=== PATIENT | female | born 1950 | race Two or more races ===

== ENCOUNTER 2019-11-22 18:28 | Inpatient (IN) | payer OTHER ==
[~2019-11-22] VITALS: Ht 160 cm; Wt 83.9 kg
[2019-11-22] MEDS: POTASSIUM CHL 20MEQ/100ML 100 ML IV SCH ×2 (03:30→22:39)
[2019-11-22 19:30] LABS: Basophils # (auto) 0.1 10 ^3/uL (0-0.2); Basophils % (auto) 1.2 % (0.0-2.0); Eosinophils # (auto) 0.1 10 ^3/uL (0-0.8); Eosinophils % (auto) 1.2 % (0.0-7.0); Hematocrit 40.8 % (36.0-46.0); Lymphocytes % (auto) 20.1 % (10.0-50.0); Mean Corpuscular Hemoglobin 29.1 pg (28.0-32.0); Mean Corpuscular Hgb Conc. 34.4 g/dL (32.0-36.0); Mean Corpuscular Volume 84.5 fL (80.0-100.0); Monocytes # (auto) 0.9 10 ^3/uL (0-1.3); Monocytes % (auto) 8.8 % (0.0-12.0); Neutrophils % (auto) 68.7 % (37.0-80.0); Nucleated Red Blood Cells % 0.1 %; Platelet Count (auto) 226 10^3/uL (140-450); Red Blood Cells 4.83 10^6/uL (4.0-5.20); Red Cell Distribution Width 15.1 % (11.8-14.3); White Blood Cell 10.2 10^3/uL (4.4-10.8)
[2019-11-22 19:54] LABS: Albumin 3.7 g/dL (3.4-5.0); BUN/Creatinine Ratio 31.4; Calcium 9.6 mg/dL (8.5-10.1)
[2019-11-22 19:57] LABS: Bilirubin, Total 0.6 mg/dL (0.2-1.0); Total Protein 7.6 g/dL (6.4-8.2)
[2019-11-22 20:04] LABS: Potassium 2.9 mmol/L (3.5-5.1)
[2019-11-22] MEDS ORDERED: POTASSIUM EFFERVESENT TAB 25 MEQ PO ONE ×2 (21:45→22:00)
[2019-11-22] MEDS ORDERED: HYDROcodone-ACET 5/325MG TAB PO ONE (22:00)
[2019-11-22] MEDS ORDERED: LORazepam 2MG/ML-1ML VIAL IV ONE (23:45)
[2019-11-23] VITALS (7 sets, daily range): BP systolic 115–129; BP diastolic 68–77
[2019-11-23] MEDS ORDERED: HALOPERIDOL LACTATE 5 MG/ML INJ VIAL IM ONE (00:15)
[2019-11-23] MEDS ORDERED: ACETAMINOPHEN 325 MG TAB PO PRN (02:45)
[2019-11-23] MEDS ORDERED: ONDANSETRON HCL 4 MG/2 ML VIAL IV PRN (02:45)
--- NOTE | 2019-11-23 05:05 | NUR ---
MS admit from ER PATIENCEANNAMARIA admitted to tele/MS. Patient oriented to VI ALANIZ RN primary RN, unit, room, bed, and unit policies regarding patient care and visiting hours. Patient weighed by bed scale. Patient asleep, arousal by shaking, oriented to self. Bed in lowest locked position, bed side rails x 4 for patient safety, sitter at bed side. Patient is confused and/or is not willing to answer questions. Instructed on POC and encouraged to call for assistance as needed.
--- NOTE | 2019-11-23 05:13 | NUR ---
FAMILY CONTACT Called patient's Ariel to obtain patient information for admission assessment. No answer at . Left message, requesting call back.
[2019-11-23] MEDS ORDERED: PNEUMOCOCCAL VACC POLYS 25 MCG/0.5 ML VIAL IM ONE (06:30)
[2019-11-23] MEDS ORDERED: LISI-646 PO (06:36)
[2019-11-23] MEDS ORDERED: ATOR40TA52 PO (06:36)
[2019-11-23] MEDS ORDERED: SERT100T PO (06:36)
[2019-11-23] MEDS ORDERED: GLIP5TAB12 PO (06:36)
[2019-11-23] MEDS ORDERED: AMLO5TAB15 PO (06:37)
[2019-11-23] MEDS: PANTOPRAZOLE 40 MG TAB PO SCH (10:00)
--- NOTE | 2019-11-23 11:16 | NUR ---
PT DAUGHTER MARIO CALLED FACILITY, INFORMATION GIVEN TO [facility], PRODUCTION WEIGHER.
--- NOTE | 2019-11-23 14:47 | NUR ---
I notified Dr. Venegas that this patient belongs to [facility].
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
--- NOTE | 2019-11-23 16:45 | NUR ---
PT SLEEPY, NOT FOLLOWING COMMANDS WELL . 1:1 SITTER AT BEDSIDE. SWALLOWED JELLO WITHOUT DIFFICULTY, HOWEVER WHEN HANDED SPOON TO EAT, LEFT THE SPOON FALL, UNABLE TO FEED SELF. INCONT OF URINE X 3. CONSULT PLACED FOR PHYSICAL THERAPY.
--- NOTE | 2019-11-23 19:20 | NUR ---
Opening Shift Note Assumed care of patient. Patient is awake and alert, oriented x 2, resting in bed with open eyes, no s/s of respiratory distress noted. Respirations are regular and non-labored. No pain reported. Bed in lowest locked position, side rails x 2 up, bed alarm ON, sitter at bed side for pt's safety. Patient instructed on POC and to call for assistance PRN. Will continue to monitor for changes Q1hr and PRN.
--- NOTE | 2019-11-23 21:02 | NUR ---
Change in behavior. Patient is agitated. Constantly moving in bed. Restless. Got new order form hospitalist. Will apply and monitor patient.
--- NOTE | 2019-11-23 21:05 | NUR ---
Pt pulled out IV catheter. Catheter is fully intact. No trauma to the site. Pressure applied to the site. Co Band wrapped around the wrist to keep dressing in place. Patient is confused, agitated, and unable to explain what happened.
[2019-11-23] MEDS ORDERED: TEMAZEPAM 15 MG CAP PO ONE (21:45)
--- NOTE | 2019-11-24 00:12 | NUR ---
Round. Patient is resting in bed. Moves from side to side. Eyes closed. No s/s of respiratory distress noted. Sitter at bed side.
--- NOTE | 2019-11-24 01:39 | NUR ---
Rounds Patient is asleep. Sitter at bed side. Will continue to monitor Q1H/PRN.
[2019-11-24 05:00] VITALS: BP 113/81
[2019-11-24 06:59] LABS: BUN/Creatinine Ratio 28.6; Calcium 9.2 mg/dL (8.5-10.1); Potassium 3.3 mmol/L (3.5-5.1)
[2019-11-24 07:01] LABS: Basophils # (auto) 0.1 10 ^3/uL (0-0.2); Eosinophils # (auto) 0.3 10 ^3/uL (0-0.8); Hematocrit 42.6 % (36.0-46.0); Hemoglobin 14.2 g/dL (12.2-16.2); Lymphocytes % (auto) 23.6 % (10.0-50.0); Mean Corpuscular Hemoglobin 28.6 pg (28.0-32.0); Mean Corpuscular Hgb Conc. 33.3 g/dL (32.0-36.0); Mean Corpuscular Volume 85.9 fL (80.0-100.0); Monocytes # (auto) 0.6 10 ^3/uL (0-1.3); Monocytes % (auto) 6.8 % (0.0-12.0); Neutrophils # (auto) 5.6 10 ^3/uL (1.6-8.6); Neutrophils % (auto) 65.6 % (37.0-80.0); Nucleated Red Blood Cells % 0.1 %; Platelet Count (auto) 197 10^3/uL (140-450); Red Blood Cells 4.96 10^6/uL (4.0-5.20); Red Cell Distribution Width 15.4 % (11.8-14.3); White Blood Cell 8.6 10^3/uL (4.4-10.8)
[2019-11-24 09:00] VITALS: BP 126/65
--- NOTE | 2019-11-24 09:43 | NUR ---
11/24/19 0943 Faxed clinical packet to [facility] requesting transfer to a [facility], Post Stabilization included in the packet.
[2019-11-24] MEDS: PANTOPRAZOLE 40 MG TAB PO SCH (10:00)
--- NOTE | 2019-11-24 10:57 | NUR ---
12/03/19 1057 Called [facility] spoke with Hina carr, stated they had received the clinical packet, Oliva KIM was reviewing the case for the transfer.
--- NOTE | 2019-11-24 11:10 | NUR ---
11/24/19 1110 Received a call from Oliva KIM [phone] at [facility] gave verbal report on the patient and stated that she, will be going to [facility] in [place].
--- NOTE | 2019-11-24 11:15 | NUR ---
Called patients Ariel and made him aware that she will be going to [facility] in [place], and stated that would be okay, express to him that the nurse will be calling him to give his consent for the transfer and stated, that will be okay.
[2019-11-24] MEDS ORDERED: LORazepam 2MG/ML-1ML VIAL IM ONE (12:00)
[2019-11-24] MEDS ORDERED: LORazepam 2MG/ML-1ML VIAL IM PRN (12:00)
--- NOTE | 2019-11-24 12:28 | NUR ---
PT TO TRANSFER TO [facility]. TELEPHONE REPORT GIVEN.
[2019-11-24 13:00] VITALS: BP 115/75
[2019-11-24] MEDS ORDERED: LORazepam 2MG/ML-1ML VIAL IV PRN (14:00)
--- NOTE | 2019-11-24 14:10 | NUR ---
11/24/19 1410 Received a call from Jackie threat monitoring analyst at [facility], Stated the patient is going to [facility] in [place], accepting Md will be Dr. Mp Benson, aircraft loadmaster superintendent time is 1900 report to be called to [phone].
[2019-11-24 17:00] VITALS: BP 125/69
--- NOTE | 2019-11-24 18:32 | NUR ---
REPORT CALLED TO LUCERO, RECEIVING NURSE AT [facility]. PT ABDIRAHMAN, NOTIFIED OF TRANSFER VIA TELEPHONE.
--- NOTE | 2019-11-24 18:56 | NUR ---
APPROX. 1100 PT CRYING, VERY IMPULSIVE, STATING, " SHE KEEPS HURTING ME" POINTING TO THE SITTER. HARD TO REDIRECT. DR HERNANDEZ NOTIFIED. ORDERS RECEIVED FOR [facility] IM OR IV PRN. INEFFECTIVE FOR SEVERAL HOURS, PT CONTINUED TO CRY, BE RESTLESS, AND IMPULSIVE. PT DID REST WITH EYES CLOSED FOR ABOUT 2 HOURS THIS AFTERNOON. AT THIS TIME AWAITING TRANSPORT TO [facility] IN [place]. SITTER REMAINS AT BEDSIDE. CONTINUING TO MONITOR CLOSELY.
--- NOTE | 2019-11-24 19:00 | NUR ---
Opening Shift Note Assumed care of patient, awake and alertX1. No S/S of distress/SOB or pain. Instructed on POC and to call for assist PRN, will continue to monitor for changes Q1hr and PRN.SITTER PRESENT AT BEDSIDE.
--- NOTE | 2019-11-24 19:45 | NUR ---
Pt being trans to another hosp Order obtained for transfer of ANNAMARIA NÚÑEZ to [facility] . Report called/given to . Report given to EMS transport team. Medication reconciliation form completed and copy given to patient. Transported via [facility] along with copied chart and imaging films/disk and all personal belongings. No distress noted on time of departure. Family notified of destination and room number, verbalized understanding. NOTE:
== END 2019-11-24 19:48 | disposition short-term general hospital (02) | DRG 125 ==
LOC: ER 18:28 → EDBD 18:28 → OVERFLOW 18:29 → WEST WING 11-23 05:05
PROVIDERS: ADMIT Nurse Practitioner; ATTEND Internal Medicine Nephrology
DX: S00.11XA Contusion of right eyelid and periocular area, initial encounter (principal); S00.83XA Contusion of other part of head, initial encounter; E87.6 Hypokalemia; H05.231 Hemorrhage of right orbit; F03.90 Unspecified dementia, unspecified severity, without behavioral disturbance, psychotic disturbance, mood disturbance, and anxiety; R62.7 Adult failure to thrive; N18.30 Chronic kidney disease, stage 3 unspecified; E78.5 Hyperlipidemia, unspecified; I12.9 Hypertensive chronic kidney disease with stage 1 through stage 4 chronic kidney disease, or unspecified chronic kidney disease; E11.22 Type 2 diabetes mellitus with diabetic chronic kidney disease; S40.022A Contusion of left upper arm, initial encounter; S40.021A Contusion of right upper arm, initial encounter; Y08.89XA Assault by other specified means, initial encounter; Y93.89 Activity, other specified; Y92.89 Other specified places as the place of occurrence of the external cause; Y99.8 Other external cause status
CPT/HCPCS: 36415; 70450; 70480; 73030; 73060; 80048; 80053; 84132; 85025; 96365; 96366; 96372; 96375; G0378; J3480